=== PATIENT | female | born 1970 | race Caucasian/White ===

== ENCOUNTER 2018-05-10 18:05 | Emergency (ER) | END 2018-05-10 23:25 | disposition home or self-care (01) ==

== ENCOUNTER 2018-06-15 20:01 | Observation (INO) | END 2018-06-16 19:05 | disposition home or self-care (01) ==

== ENCOUNTER 2019-01-11 16:01 | Emergency (ER) | payer OTHER ==
[~2019-01-11] VITALS: Ht 157.5 cm; Wt 150.0 kg
[~2019-01-11 16:01] MED LIST: MTF1000T PO; SITA50TA2 PO
[2019-01-11 16:03] VITALS: Ht 157.5 cm; Wt 150.0 kg
--- NOTE | 2019-01-11 16:55 | ERD ---
ER Documentation Chief Complaint Chief Complaint intermittent left lower abdominal pain x 1 month HPI The patient is a 49-year-old female, presenting to the ER because of intermittent left-sided abdominal pain for 1 month, worse today, complains of constipation, denies fever, chills, neck pain, chest pain, dyspnea, vomiting, dysuria. She does not smoke nor drink Past medical history: Diabetes mellitus, hypertension Past surgical history: 3 , cholecystectomy ROS All systems reviewed and are negative except as per history of present illness. Medications Home Meds Active Scripts Polyethylene Glycol* (Miralax*) 17 Gm Powd.pack, 17 GM PO DAILY, #7 Prov:BRYAN WINN MD 01/11/19 Sitagliptin* (Januvia*) 50 Mg Tablet, 50 MG PO DAILY, #30 TAB Prov:DENITA DAVIS NP 06/16/18 Metformin* (Glucophage*) 1,000 Mg Tablet, 1000 MG PO BID, #60 TAB Start taking only from 06/18/2018 morning dose (received IV dye in the hospital). Prov:DENITA DAVIS NP 06/16/18 Allergies Allergies: Coded Allergies: No Known Drug Allergies (Verified Allergy, Mild, 06/15/18) PMhx/Soc History of Surgery: Yes (,CHOLECYSTECTOMY) Anesthesia Reaction: No Hx Neurological Disorder: No Hx Respiratory Disorders: No Hx Cardiac Disorders: Yes (HTN) Hx Psychiatric Problems: No Hx Miscellaneous Medical Probl: No Hx Alcohol Use: No Hx Substance Use: No Hx Tobacco Use: No Physical Exam Vitals Vital Signs Date Temp Pulse Resp B/P (MAP) Pulse Ox O2 O2 Flow FiO2 Time Delivery Rate 01/11/19 97.5 74 18 101/59 98 Room Air 18:49 (73) 01/11/19 97.5 74 18 139/86 98 Room Air 17:53 (103) 01/11/19 97.5 80 18 145/95 98 Room Air 17:07 (112) 01/11/19 97.5 100 18 145/95 98 16:03 (112) Physical Exam Const: No acute distress. Head: Atraumatic. Eyes: Normal Conjunctiva. ENT: Normal External Ears, Nose and Mouth. Neck: Full range of motion. No meningismus. Resp: Clear to auscultation bilaterally. Cardio: Regular rate and rhythm. Abd: Soft, non distended, normal bowel sounds, left-sided abdominal discomfort, no rigidity/rebound/CVA tenderness Skin: No petechiae or rashes. Back: No midline or flank tenderness. Ext: No cyanosis, or edema. Neur: Awake and alert. No focal deficit Psych: Normal Mood and Affect. Result Diagram: 01/11/19 1717 01/11/19 1717 Results 24 hrs Laboratory Tests Test 01/11/19 17:15 01/11/19 17:17 01/11/19 17:26 01/11/19 18:24 Beta HCG, 2.5 mIU/ml Quantitative White Blood Count 11.0 10^3/ul Red Blood Count 5.27 10^6/ul Hemoglobin 13.8 g/dl Hematocrit 44.4 % Mean Corpuscular 84.3 fl Volume Mean Corpuscular 26.2 pg Hemoglobin Mean Corpuscular 31.1 g/dl Hemoglobin Concent Red Cell 13.2 % Distribution Width Platelet Count 266 10^3/UL Mean Platelet 11.5 fl Volume Immature 0.600 % Granulocytes % Neutrophils % 58.6 % Lymphocytes % 34.6 % Monocytes % 4.1 % Eosinophils % 1.6 % Basophils % 0.5 % Nucleated Red Blood 0.0 /100WBC Cells % Immature 0.070 10^3/ul Granulocytes # Neutrophils # 6.4 10^3/ul Lymphocytes # 3.8 10^3/ul Monocytes # 0.5 10^3/ul Eosinophils # 0.2 10^3/ul Basophils # 0.1 10^3/ul Nucleated Red Blood 0.0 10^3/ul Cells # Sodium Level 135 mmol/L Potassium Level 4.8 mmol/L Chloride Level 97 mmol/L Carbon Dioxide 29 mmol/L Level Anion Gap 9 Blood Urea Nitrogen 12 mg/dl Creatinine 0.62 mg/dl Est Glomerular > 60 mL/min Filtrat Rate mL/min Glucose Level 529 mg/dl Calcium Level 8.8 mg/dl Total Bilirubin 0.4 mg/dl Direct Bilirubin 0.00 mg/dl Indirect Bilirubin 0.4 mg/dl Aspartate Amino 15 IU/L Transf (AST/SGOT) Alanine 18 IU/L Aminotransferase (A LT/SGPT) Alkaline 143 IU/L Phosphatase Total Protein 7.7 g/dl Albumin 3.9 g/dl Globulin 3.80 g/dl Albumin/Globulin 1.02 Ratio Lipase 93 U/L Bedside Urine pH 5.5 (LAB) Bedside Urine Trace Protein (LAB) Bedside Urine >=1.0% Glucose (UA) Bedside Urine Negative Ketones (LAB) Bedside Urine Blood Trace-intact Bedside Urine Negative Nitrite (LAB) Bedside Urine Trace Leukocyte Esterase (L Bedside Glucose 425 mg/dL Test 01/11/19 18:38 01/11/19 18:39 POC Beta HCG, NEGATIVE NEGATIVE Qualitative Current Medications Medications Dose Sig/Everardo Start Time Status Last (Trade) Ordered Route PRN Stop Time Admin Dose Reason Admin Ondansetron 4 mg ONCE STAT 01/11/19 DC 01/11/19 HCl (Zofran IV 17:01 17:18 Inj) 01/11/19 17:03 Insulin 15 unit ONCE ONCE 01/11/19 DC 01/11/19 Human SC 18:30 18:48 Lispro 01/11/19 18:31 (Humalog) Diagnostic 1 ea 2 HRS AFTER 01/11/19 Test (Pha) HUMALOG ONCE 20:30 (Accu-Chek) XX 01/11/19 20:31 Sodium 1,000 ml @ Q1H ONCE 01/11/19 DC 01/11/19 Chloride 1,000 mls/hr IV 18:30 18:47 01/11/19 19:29 Ketorolac 30 mg ONCE STAT 01/11/19 DC 01/11/19 Tromethamine IV 18:55 19:07 (Toradol) 01/11/19 18:56 Procedures/[place] [id number] Radiology Main Line: [phone] DIAGNOSTIC IMAGING REPORT Patient: PRESLEY CARDENAS : 1970 Age: 49 Sex: F MR #: [id number] DOS: 01/11/19 1701 Ordering MD: BRYAN WINN MD Location: E/R Room/Bed: PROCEDURE: CT abdomen and pelvis without contrast. CLINICAL INDICATION: Abdominal pain. TECHNIQUE: CT scan of the abdomen and pelvis without contrast was performed. Sagittal and coronal reformatted images were obtained from the axial source images. DICOM images are available. One or more of the following dose reduction techniques were used: Automated exposure control, adjustment of the mA and/or kV according to patient size, use of iterative reconstruction technique. CTDI = 23.87 mGy; DLP = 1497.57 mGy-cm COMPARISON: None available. FINDINGS: The study is limited by the patient's body habitus. Visualized lower thorax: The lung bases are clear. There is no evidence for pleural effusion. Liver, gallbladder, pancreas and spleen: Hepatomegaly of 23 cm cranial caudal dimension is present with hepatic steatosis but preserved liver contour. There is no evidence for a liver mass or ductal dilatation. Findings are compatible with prior cholecystectomy. No common bile duct abnormality is demonstrated. The pancreas is unremarkable. Mild splenomegaly of 14.8 cm is present. Adrenal glands and genitourinary system: The adrenal glands are normal bilaterally. The kidneys are normal and size, contour and attenuation with no evidence for masses, calculi or hydronephrosis. The ureters are unremarkable. No urinary bladder abnormality is demonstrated. The uterus and adnexa are unremarkable. Gastrointestinal system: The stomach is normal in caliber with no abnormality of significance. The small bowel is normal in caliber with no ileus, obstruction or wall thickening. There is no evidence of appendicitis. The colon shows no evidence for wall thickening or acute abnormality. There is no evidence for colitis or diverticulitis. Peritoneum, retroperitoneum, lymph nodes and vessels: The abdominal aorta is normal in caliber. There is no evidence for atherosclerotic calcification. The inferior vena cava is unremarkable. There is no evidence for adenopathy or mass. There is no ascites. No pneumoperitoneum is present Osseous structures and musculoskeletal findings: There is no fracture, lytic or blastic lesion. Severe right hip joint osteoarthrosis is present. No muscular abnormality or soft tissue pathology is present. Copious subcutaneous adipose tissues compatible with obesity. RPTAT:HJJR IMPRESSION: 1. There is no evidence of acute intra-abdominal or acute intrapelvic abnormality. 2. Hepatosplenomegaly and hepatic steatosis. 3. Prior cholecystectomy. 4. Severe right hip joint osteoarthrosis. Physician Maikel Date Time Electronically viewed and signed by Physician Maikel on 01/11/2019 19:13 JR/ CC: BRYAN WINN MD [id number] MEDICAL MAKING DECISION: The patient is a 49-year-old female, presenting with acute abdominal pain, most likely due to acute constipation, acute hyperkalemia. She was treated with Zofran 4 mg IV for nausea, 1 L and 14 units of Humalog subcu for acute hyperglycemia, Toradol 30 mg IV for pain with good response, is stable for outpatient follow-up The differential diagnoses considered include but are not limited to choledocholithiasis, cholangitis, pancreatitis, hepatitis, gastritis, peptic ulcer disease, gastric ulcer, appendicitis, cystitis, diverticulitis, partial small bowel obstruction. Departure Diagnosis: Primary Impression: Constipation Additional Impressions: Hyperglycemia Abdominal pain Condition: Good Comments She was discharged with MiraLAX I discussed the findings with the patient. I advised the patient to follow-up with the primary physician in about 1-2 days, sooner if needed and return if any concern. Disclaimer: Inadvertent spelling and grammatical errors are likely due to EHR/dictation software use and do not reflect on the overall quality of patient care. Also, please note that the electronic time recorded on this note does not necessarily reflect the actual time of the patient encounter. BRYAN WINN MD Jan 11, 2019 16:55
[2019-01-11] MEDS ORDERED: ONDANSETRON 4 MG INJ IV STA (17:01)
[2019-01-11] MEDS ORDERED: SOD CHLORIDE 0.9% 1,000 ML IV ONE (18:30)
[2019-01-11] MEDS ORDERED: INSULIN LISPRO 100 UNIT/ML VIAL SC ONE (18:30)
[2019-01-11] MEDS ORDERED: KETOROLAC 30 MG INJ IV STA (18:55)
[2019-01-11] MEDS ORDERED: POLY17PO6 PO (19:33)
[2019-01-11 20:09] VITALS: BP 112/70; PULSE 81; RESP 18
[2019-01-11] MEDS ORDERED: ACCU-CHEK XX ONE (20:30)
== END 2019-01-11 20:11 | disposition home or self-care (01) ==
LOC: E/R 16:01
DX: K59.00 Constipation, unspecified (principal); I10 Essential (primary) hypertension; E11.65 Type 2 diabetes mellitus with hyperglycemia; Z79.84 Long term (current) use of oral hypoglycemic drugs
CPT/HCPCS: 36415; 74176; 80053; 81003; 81025; 82962; 83690; 84702; 85025; 96361; 96372; 96374; 96375; J1815; J1885; J2405; J7030; Z7502

== ENCOUNTER 2019-04-04 12:14 | Emergency (ER) | payer OTHER ==
[~2019-04-04] VITALS: Wt 145.4 kg
[~2019-04-04 12:14] MED LIST changes: +BUTA1CAP38 PO; +POLY17PO6 PO
[2019-04-04 12:24] VITALS: BP 144/75; PULSE 95; RESP 20
[2019-04-04] MEDS ORDERED: ONDANSETRON (ODT) 4 MG TAB ODT STA (14:02)
[2019-04-04] MEDS ORDERED: KETOROLAC 30 MG INJ IM STA (14:02)
[2019-04-04] MEDS ORDERED: HYDROCODONE/APAP (5/325) TAB PO ONE (14:30)
== END 2019-04-04 15:44 | disposition home or self-care (01) ==
LOC: FTE 12:14
DX: G44.209 Tension-type headache, unspecified, not intractable (principal); I10 Essential (primary) hypertension; E11.9 Type 2 diabetes mellitus without complications; Z79.84 Long term (current) use of oral hypoglycemic drugs
CPT/HCPCS: 80048; 81003; 81025; 85025; 96372; J1885; Z7502; Z7610